=== PATIENT | female | born 1995 | race Caucasian/White ===

== ENCOUNTER 2018-05-27 15:48 | Emergency (ER) | payer OTHER ==
[~2018-05-27] VITALS: Ht 162.6 cm; Wt 117.9 kg
[2018-05-27 15:54] VITALS: Ht 162.6 cm; Wt 117.9 kg
[2018-05-27 17:51] VITALS: BP 124/74
== END 2018-05-27 17:51 | disposition home or self-care (01) ==
LOC: ED 15:48
DX: N64.4 Mastodynia (principal)
CPT/HCPCS: 76641

== ENCOUNTER 2018-11-09 22:35 | Emergency (ER) | payer OTHER ==
[~2018-11-09] VITALS: Ht 167.6 cm; Wt 108.0 kg
[2018-11-09 22:43] VITALS: Ht 167.6 cm; Wt 108.0 kg
[2018-11-10 00:09] VITALS: BP 101/78
== END 2018-11-10 00:10 | disposition home or self-care (01) ==
LOC: ED 22:35
DX: N39.0 Urinary tract infection, site not specified (principal); F12.10 Cannabis abuse, uncomplicated
CPT/HCPCS: Q0162

== ENCOUNTER 2018-12-03 09:36 | Emergency (ER) | payer OTHER ==
[~2018-12-03] VITALS: Ht 165.1 cm; Wt 105.7 kg
[2018-12-03 09:50] VITALS: Ht 165.1 cm; Wt 105.7 kg
[2018-12-03 11:47] VITALS: BP 132/78
== END 2018-12-03 11:47 | disposition home or self-care (01) ==
LOC: ED 09:36
DX: L50.9 Urticaria, unspecified (principal)
CPT/HCPCS: J7512; Q0163